=== PATIENT | female | born 1985 | race Caucasian/White ===

== ENCOUNTER 2025-03-23 08:43 | Day surgery (SDC) | payer BC ==
[~2025-03-23 08:43] MED LIST: CEFAZOLIN SODIUM ONE; Decadron 4 MG ONE; Lactated Ringers 1,000 ML IV ONE; MARCAINE 0.25% PF/ EPI 1:200,000 ONE; NEURONTIN ONE; TYLENOL EXTRA STRENGTH 500 MG ONE; celeBREX 100 MG ONE
[2025-03-23] MEDS: NEURONTIN PO ONE (08:47)
[2025-03-23] MEDS: Decadron 4 MG PO ONE (08:48)
[2025-03-23] MEDS: celeBREX 100 MG PO ONE (08:48)
[2025-03-23] MEDS: TYLENOL EXTRA STRENGTH 500 MG PO ONE (08:48)
[2025-03-23] MEDS: Lactated Ringers 1,000 ML IV SCH (08:48)
[2025-03-23 08:58] VITALS: RESP 18; O2SAT 100
[2025-03-23 09:03] LABS: Hematocrit 39.3 % (34.1-44.9); Hemoglobin 13.1 g/dL (11.2-15.7); Mean Corpuscular Hemoglobin 30.1 pg (25.6-32.2); Mean Corpuscular Hgb Concent. 33.3 g/dL (32.2-35.5); Platelet Count 315 x10^3/uL (182-369); Red Blood Count 4.35 x10^6/uL (3.93-5.22); White Blood Count 6.3 x10^3/uL (3.98-10.04)
[2025-03-23 09:04] LABS: HCG URINE TEST NEGATIVE (NEGATIVE)
[2025-03-23] MEDS ORDERED: propofoL IV ONE (11:03)
[2025-03-23] MEDS ORDERED: Versed 2 MG/2 ML Injection ONE (11:03)
[2025-03-23] MEDS ORDERED: SUBLIMAZE 100 MCG/2 ML ONE ×3 (11:03→13:11)
[2025-03-23] MEDS ORDERED: Xylocaine-Mpf 2% 5 Ml Vial ONE (11:40)
[2025-03-23] MEDS ORDERED: DILAUDID 2 MG INJECTION ONE (12:00)
[2025-03-23] MEDS ORDERED: Zofran 4 MG/2 ML VIAL ONE (12:09)
[2025-03-23] MEDS ORDERED: TORAdol 30 mg Injection ONE (13:10)
[2025-03-23 13:52] VITALS: BP 109/59; PULSE 79; TEMP 97.1
--- NOTE | 2025-03-24 09:22 | OP ---
SURGERY DATE/TIME: 03/23/2025 [id number] PREOPERATIVE DIAGNOSIS: Torn left medial meniscus. POSTOPERATIVE DIAGNOSES: 1) Torn left medial meniscus. 2) Medial plica. PROCEDURE: Arthroscopy of the left knee with partial medial meniscectomy and excision of medial plica. SURGEON: Marc Rowland II, DO ANESTHESIA: General. DESCRIPTION OF PROCEDURE AND FINDINGS: The patient was identified, and informed consent was obtained. The patient was taken to the operative suite and placed in supine position on the operating table where the general anesthetic was administered. Once an appropriate level of anesthesia had been obtained, a tourniquet was placed high on the left thigh. The left lower extremity was then prepped and draped in the usual sterile fashion, and a standard time-out was taken. Following this, the leg was exsanguinated, and the tourniquet was elevated to 350 mmHg. A standard superomedial portal was created with an 11-blade, and the trocar and cannula were placed into the joint. The joint was distended with the arthroscopic pump. An inferolateral portal was also created with an 11-blade, and the arthroscope was placed in through a cannula. An 18-gauge spinal needle identified the level for the inferomedial portal, which was also created with an 11-blade. The knee was inspected in a systematic fashion beginning in the suprapatellar pouch where there were no loose bodies or synovial hypertrophy. The patient did have a medial plica which was shaved with the full-radius shaver and excised in toto. The patella tracked quite nicely within the femoral groove in about 30 degrees of flexion and there was no chondromalacia noted on either the patella or the trochlear groove. Scope was placed into the medial compartment where a complex tear involving the middle and posterior horn of the medial meniscus was encountered, resected with the handheld biting instruments and shaved to a smooth transition with the shaver. Intercondylar notch region was inspected where a loose body was noted. It was grasped and removed. The anterior cruciate ligament was noted to be intact without evidence of attenuation or tears. Scope was placed into the lateral compartment where the lateral meniscus was probed throughout its entirety on both the upper and undersurfaces and noted to be intact. The knee was then reinspected and no further pathology identified. The knee was copiously irrigated. The instrumentation was removed, and the portal sites were closed with interrupted 4-0 nylon suture. The knee was infiltrated with 30 mL of 0.25% Marcaine with epinephrine. Adaptics, 4 x 4's, and a standard postoperative arthroscopy dressing applied. Patient was transferred to the cart and taken to the recovery room in satisfactory condition, having tolerated the procedure well.
== END 2025-03-23 13:55 | disposition home or self-care (01) ==
LOC: SDC 08:43
PROVIDERS: ATTEND Orthopaedic Surgery
DX: S83.242A Other tear of medial meniscus, current injury, left knee, initial encounter (principal); M67.52 Plica syndrome, left knee